=== PATIENT | female | born 2000 | race Native Hawaiian/Other Pacific Islander ===

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

== ENCOUNTER 2019-10-11 21:04 | Emergency (ER) | payer OTHER ==
[~2019-10-11] VITALS: Ht 157.5 cm; Wt 90.3 kg
[2019-10-11 23:15] VITALS: BP 117/78; TEMP 98.3
== END 2019-10-11 23:15 | disposition home or self-care (01) ==
LOC: ED 21:04
DX: N39.0 Urinary tract infection, site not specified (principal)
CPT/HCPCS: 81000; 81025; 87502; 99283

== ENCOUNTER 2020-02-08 17:57 | Emergency (ER) | payer OTHER ==
[~2020-02-08] VITALS: Ht 157.5 cm; Wt 90.3 kg
[2020-02-08 21:53] VITALS: BP 118/91; TEMP 99.9
== END 2020-02-08 21:53 | disposition home or self-care (01) ==
LOC: ED 17:57
DX: S40.022A Contusion of left upper arm, initial encounter (principal); S40.021A Contusion of right upper arm, initial encounter; S70.12XA Contusion of left thigh, initial encounter; V59.40XA Driver of pick-up truck or van injured in collision with unspecified motor vehicles in traffic accident, initial encounter; Y92.89 Other specified places as the place of occurrence of the external cause
CPT/HCPCS: 81025; 99283

== ENCOUNTER 2021-02-01 02:06 | Emergency (ER) | payer OTHER ==
[~2021-02-01] VITALS: Ht 157.5 cm; Wt 95.3 kg
[2021-02-01 02:43] LABS: PLATELET COUNT 320 K/uL (152-353)
[2021-02-01 02:49] LABS: POTASSIUM 3.9 mmol/L (3.6-5.2)
[2021-02-01 04:35] VITALS: BP 122/60; TEMP 99
== END 2021-02-01 04:35 | disposition short-term general hospital (02) ==
LOC: ED 02:06
PROVIDERS: Emergency Medicine
DX: K35.890 Other acute appendicitis without perforation or gangrene (principal); Z98.51 Tubal ligation status
CPT/HCPCS: 80053; 81000; 81025; 82150; 83690; 85027; 96360; 96365; 96375; 99284; J1170; J2405; J2543; Q9963